=== PATIENT | female | born 1955 | race Two or more races ===

== ENCOUNTER 2024-04-15 07:45 | Outpatient (CLI) | payer OTHER | END 2024-04-15 07:47 | disposition home or self-care (01) | LOC: NUCLEAR 07:45 | DX: C75.4 Malignant neoplasm of carotid body (principal) | CPT/HCPCS: 78816; A9552 ==

== ENCOUNTER → 2025-04-09 07:24 | Outpatient (CLI) | payer OTHER | END | disposition home or self-care (01) | LOC: NUCLEAR 07:00 | DX: C80.1 Malignant (primary) neoplasm, unspecified (principal); C54.0 Malignant neoplasm of isthmus uteri | CPT/HCPCS: 78816; A9552 ==